=== PATIENT | female | born 1965 | race African-American/Black ===

== ENCOUNTER 2019-04-14 16:44 | Inpatient (IN) | payer MEDICAID ==
[~2019-04-14] VITALS: Ht 175.3 cm; Wt 126.3 kg
[~2019-04-14 16:44] MED LIST: ASPI-1158 PO; FAMO20TA8 PO; ISOS30TA12 PO; LABE100T5 PO; NITR0.4T SL; PARO30TA62 PO
[2019-04-14 20:23] LABS: CHLORIDE 104 mEq/L (98-107)
[2019-04-14 20:27] LABS: BASOPHILS % 0.4 % (0.0-2.0); EOSINOPHILS % 1.7 % (0.0-5.0); HEMATOCRIT. 40.7 % (36.0-48.0); HEMOGLOBIN. 12.8 g/dL (12.0-16.0); LYMPHOCYTES % 21.5 % (20.0-50.0); MEAN CORPUSCULAR HEMOGLOBIN 23.8 pg (28.0-32.0); MEAN CORPUSCULAR VOLUME 75.6 fL (81.0-99.0); MEAN PLATELET VOLUME 9.2 fl (7.4-10.4); MONOCYTES % 9.1 % (2.0-8.0); NEUTROPHILS % 67.3 % (40.0-76.0); PLATELET 271 x1000/uL (130-400); RED BLOOD CELL COUNT 5.38 mill/uL (4.2-5.4); RED CELL DISTRIBUTION WIDTH 29.6 % (11.6-14.6)
[2019-04-14 21:00] LABS: PLATELET ESTIMATE NORMAL
[2019-04-14] MEDS ORDERED: ASPIRIN 325MG EC TABLET PO ONE (21:00)
[2019-04-14] MEDS ORDERED: FUROSEMIDE 40MG/4ML VIAL IVP ONE (21:30)
[2019-04-14 22:40] VITALS: BP 135/93
[2019-04-14] MEDS ORDERED: FUROSEMIDE 40MG/4ML VIAL IVP SCH (23:30)
[2019-04-14] MEDS ORDERED: ZOLPIDEM TARTRATE 5MG TABLET PO PRN (23:30)
[2019-04-15] VITALS: BP 122/82
[2019-04-15] MEDS ORDERED: FURO20TA4 PO (00:26)
[2019-04-15] MEDS ORDERED: DULO30CA52 PO (00:26)
[2019-04-15] MEDS ORDERED: LOSA1TAB40 PO (00:27)
[2019-04-15] MEDS: METOPROLOL TARTRATE 50MG TABLET PO SCH ×2 (00:33→09:00)
[2019-04-15] MEDS: HYDROCODONE/ACETAMINOPHEN 10/325MG TABLET PO PRN ×3 (00:34→20:58)
[2019-04-15] MEDS ORDERED: DILT180C3 PO (01:16)
[2019-04-15 04:00] VITALS: BP 97/63
[2019-04-15 07:21] LABS: BASOPHILS % 1.4 % (0.0-2.0); EOSINOPHILS % 1.6 % (0.0-5.0); HEMATOCRIT. 41.4 % (36.0-48.0); LYMPHOCYTES % 28.3 % (20.0-50.0); MEAN CORPUSCULAR HEMOGLOBIN 23.7 pg (28.0-32.0); MEAN CORPUSCULAR VOLUME 75.6 fL (81.0-99.0); MEAN PLATELET VOLUME 9.1 fl (7.4-10.4); MONOCYTES % 7.2 % (2.0-8.0); NEUTROPHILS % 61.5 % (40.0-76.0); PLATELET 288 x1000/uL (130-400); RED BLOOD CELL COUNT 5.47 mill/uL (4.2-5.4); RED CELL DISTRIBUTION WIDTH 30.5 % (11.6-14.6)
[2019-04-15 07:28] LABS: CHLORIDE 104 mEq/L (98-107)
[2019-04-15 08:00] VITALS: BP 104/84
[2019-04-15] MEDS ORDERED: RIVAROXABAN 10 MG TABLET PO SCH (09:00)
[2019-04-15] MEDS: DILTIAZEM HCL 180MG CAPSULE CD 24HR PO SCH (09:00)
[2019-04-15] MEDS ORDERED: LOSARTAN POTASSIUM 100 MG TABLET PO SCH (09:00)
[2019-04-15] MEDS: ASPIRIN 81MG EC TABLET PO SCH (09:15)
[2019-04-15] MEDS: FAMOTIDINE 20MG TABLET PO SCH ×2 (09:15→18:02)
[2019-04-15] MEDS: DULOXETINE HCL 30MG DR CAPSULE PO SCH (09:15)
[2019-04-15] MEDS: FUROSEMIDE 40MG/4ML VIAL IVP SCH ×2 (09:17→20:58)
[2019-04-15 12:00] VITALS: BP 123/78
[2019-04-15 16:00] VITALS: BP 130/73
[2019-04-15 20:00] VITALS: BP_SYST 128; BP_SYST 135; BP_SYST 154; BP_DIAS 80; BP_DIAS 89; BP_DIAS 95
[2019-04-16] VITALS: BP 107/85
[2019-04-16 04:00] VITALS: BP 107/75
[2019-04-16 08:00] VITALS: BP 141/108
[2019-04-16] MEDS: DILTIAZEM HCL 180MG CAPSULE CD 24HR PO SCH (09:26)
[2019-04-16] MEDS: FAMOTIDINE 20MG TABLET PO SCH ×2 (09:26→17:54)
[2019-04-16] MEDS: LOSARTAN POTASSIUM 100 MG TABLET PO SCH (09:26)
[2019-04-16] MEDS: ASPIRIN 81MG EC TABLET PO SCH (09:26)
[2019-04-16] MEDS: DULOXETINE HCL 30MG DR CAPSULE PO SCH (09:26)
[2019-04-16] MEDS: FUROSEMIDE 40MG/4ML VIAL IVP SCH ×2 (09:26→21:24)
[2019-04-16] MEDS ORDERED: DILTIAZEM HCL 5MG/ML 5ML VIAL IV NR (11:15)
[2019-04-16 11:55] LABS: EOSINOPHILS % 1.9 % (0.0-5.0); HEMATOCRIT. 39.6 % (36.0-48.0); HEMOGLOBIN. 12.6 g/dL (12.0-16.0); LYMPHOCYTES % 22.2 % (20.0-50.0); MEAN CORPUSCULAR HEMOGLOBIN 24.1 pg (28.0-32.0); MEAN CORPUSCULAR VOLUME 75.4 fL (81.0-99.0); MEAN PLATELET VOLUME 9.4 fl (7.4-10.4); MONOCYTES % 7.7 % (2.0-8.0); NEUTROPHILS % 67.2 % (40.0-76.0); PLATELET 260 x1000/uL (130-400); RED BLOOD CELL COUNT 5.25 mill/uL (4.2-5.4); RED CELL DISTRIBUTION WIDTH 30.4 % (11.6-14.6)
[2019-04-16 11:56] LABS: CHLORIDE 101 mEq/L (98-107)
[2019-04-16 12:00] VITALS: BP 102/64
[2019-04-16] MEDS ORDERED: DILTIAZEM HCL 60MG TABLET PO NR (12:00)
[2019-04-16 12:04] LABS: LDL CHOLESTEROL 120 mg/dL (5-100)
[2019-04-16 12:15] LABS: HDL CHOLESTEROL 27 mg/dL (40-59)
[2019-04-16] MEDS ORDERED: RIVAROXABAN 10 MG TABLET PO SCH (17:00)
[2019-04-16] MEDS ORDERED: RIVAROXABAN 20 MG TABLET PO SCH (17:00)
[2019-04-16] MEDS: MAGNESIUM OXIDE 400MG TABLET PO SCH (17:54)
[2019-04-16] MEDS: POTASSIUM CHLORIDE 20MEQ TABLET SR PO SCH ×2 (17:54→21:24)
[2019-04-16 20:00] VITALS: BP 123/66
[2019-04-16 20:05] VITALS: BP_SYST 118; BP_SYST 133; BP_DIAS 54; BP_DIAS 68
[2019-04-16 21:10] LABS: PLATELET ESTIMATE NORMAL
[2019-04-17] VITALS (7 sets, daily range): BP systolic 99–134; BP diastolic 63–93
[2019-04-17] MEDS: HYDROCODONE/ACETAMINOPHEN 10/325MG TABLET PO PRN ×2 (02:06→11:43)
[2019-04-17 08:22] LABS: BASOPHILS % 1.2 % (0.0-2.0); HEMATOCRIT. 40.6 % (36.0-48.0); HEMOGLOBIN. 12.9 g/dL (12.0-16.0); LYMPHOCYTES % 25.2 % (20.0-50.0); MEAN CORPUSCULAR VOLUME 75.9 fL (81.0-99.0); MEAN PLATELET VOLUME 9.8 fl (7.4-10.4); MONOCYTES % 9.2 % (2.0-8.0); NEUTROPHILS % 62.4 % (40.0-76.0); PLATELET 268 x1000/uL (130-400); RED BLOOD CELL COUNT 5.35 mill/uL (4.2-5.4); RED CELL DISTRIBUTION WIDTH 29.7 % (11.6-14.6)
[2019-04-17 09:00] LABS: CHLORIDE 103 mEq/L (98-107)
[2019-04-17] MEDS ORDERED: DILTIAZEM HCL 120MG CAPSULE CD 24HR PO SCH (09:00)
[2019-04-17] MEDS: FUROSEMIDE 40MG/4ML VIAL IVP SCH (09:37)
[2019-04-17] MEDS: ASPIRIN 81MG EC TABLET PO SCH (09:38)
[2019-04-17] MEDS: DULOXETINE HCL 30MG DR CAPSULE PO SCH (09:38)
[2019-04-17] MEDS: LOSARTAN POTASSIUM 100 MG TABLET PO SCH (09:38)
[2019-04-17] MEDS: MAGNESIUM OXIDE 400MG TABLET PO SCH (09:38)
[2019-04-17] MEDS: FAMOTIDINE 20MG TABLET PO SCH (09:48)
[2019-04-17 11:03] LABS: CLARITY URINE CLOUDY (CLEAR); COLOR URINE YELLOW (YELLOW); KETONES URINE NEGATIVE (NEGATIVE); LEUKOCYTE ESTERASE URINE NEGATIVE (NEGATIVE); NITRITE URINE NEGATIVE (NEGATIVE); OCCULT BLOOD URINE 3+ (NEGATIVE); PH URINE 5.5 (4.5-8.0); PROTEIN URINE 1+ (NEGATIVE); SPECIFIC GRAVITY URINE 1.021 (1.005-1.030)
[2019-04-17 11:43] LABS: *COCAINE SCREEN URINE NEGATIVE (NEGATIVE)
[2019-04-17 11:44] LABS: *AMPHETAMINES SCREEN URINE NEGATIVE (NEGATIVE); *BARBITURATES SCREEN URINE NEGATIVE (NEGATIVE); *BENZODIAZEPINES SCREEN URINE NEGATIVE (NEGATIVE); CANNABINOID URINE SCREEN NEGATIVE (NEGATIVE); METHADONE URINE SCREEN NEGATIVE (NEGATIVE); OPIATES URINE SCREEN PRESUMTIVE POSITIVE (NEGATIVE)
[2019-04-17 11:45] LABS: PHENCYCLIDINE URINE SCREEN NEGATIVE (NEGATIVE)
== END 2019-04-17 16:06 | disposition home or self-care (01) | DRG 194 ==
LOC: ER 16:44 → 6WST 21:17 → ENRESERV 21:55 → UNDODISIN 04-15 15:15
PROVIDERS: ADMIT Internal Medicine; ATTEND Internal Medicine
DX: I11.0 Hypertensive heart disease with heart failure (principal); I27.20 Pulmonary hypertension, unspecified; I42.9 Cardiomyopathy, unspecified; I50.43 Acute on chronic combined systolic (congestive) and diastolic (congestive) heart failure; I48.91 Unspecified atrial fibrillation; E66.9 Obesity, unspecified; I34.0 Nonrheumatic mitral (valve) insufficiency; Z82.49 Family history of ischemic heart disease and other diseases of the circulatory system; Z68.41 Body mass index [BMI] 40.0-44.9, adult; Z90.89 Acquired absence of other organs; Z88.8 Allergy status to other drugs, medicaments and biological substances; Z79.899 Other long term (current) drug therapy; Z79.82 Long term (current) use of aspirin
CPT/HCPCS: 36415; 71045; 80048; 80061; 80305; 81003; 83036; 83735; 83880; 84484; 93005; 93306; 99285; J1940

== ENCOUNTER 2019-05-12 11:25 | Emergency (ER) | payer MEDICAID ==
[~2019-05-12] VITALS: Ht 175.3 cm; Wt 123.0 kg
[~2019-05-12 11:25] MED LIST changes: +DILT180C3 PO; +DULO30CA52 PO; +FURO20TA4 PO; -ISOS30TA12 PO; -LABE100T5 PO; +LOSA1TAB40 PO; -PARO30TA62 PO
[2019-05-12 14:05] VITALS: BP 120/83
== END 2019-05-12 14:11 | disposition home or self-care (01) ==
LOC: ER 12:41
DX: L03.012 Cellulitis of left finger (principal); I48.91 Unspecified atrial fibrillation; I11.9 Hypertensive heart disease without heart failure; Z88.6 Allergy status to analgesic agent; Z79.82 Long term (current) use of aspirin
CPT/HCPCS: 99282